=== PATIENT | male | born 1960 | race Caucasian/White ===

== ENCOUNTER 2022-06-15 16:57 | Emergency (ER) | payer OTHER ==
[~2022-06-15] VITALS: Ht 172.7 cm; Wt 90.7 kg
[~2022-06-15 16:57] MED LIST: BASAGLAR K100 UNIT/1 SC; GABA300 PO; Guaifenesin Wit10 ML PO; METF500 PO; VENL75ER PO; WARF10 PO; WARF7.5 PO
== END 2022-06-15 18:18 | disposition home or self-care (01) ==
LOC: ER 16:57
DX: S90.01XA Contusion of right ankle, initial encounter (principal); F17.200 Nicotine dependence, unspecified, uncomplicated; W22.8XXA Striking against or struck by other objects, initial encounter; Z86.711 Personal history of pulmonary embolism; Z79.01 Long term (current) use of anticoagulants; Z79.899 Other long term (current) drug therapy
CPT/HCPCS: 99283

== ENCOUNTER 2023-04-12 23:12 | Inpatient (IN) | payer OTHER ==
[~2023-04-12] VITALS: Ht 175.3 cm; Wt 90.2 kg
[~2023-04-12 23:12] MED LIST changes: -BASAGLAR K100 UNIT/1 SC; +INSULANI SC
[2023-04-13] VITALS (8 sets, daily range): BP systolic 109–147; BP diastolic 58–90
[2023-04-13 01:32] LABS: International Normalized Ratio 2.72
[2023-04-13] MEDS ORDERED: ATOR20 PO (04:34)
[2023-04-13] MEDS ORDERED: SERT25 (04:35)
[2023-04-13] MEDS ORDERED: ESOM20 (04:38)
[2023-04-13] MEDS ORDERED: PRAZ1 PO (04:45)
[2023-04-13 05:21] LABS: BASOPHILS ABSOLUTE AUTO 0.02 K/mm3 (0.00-0.23); BASOPHILS PERCENT AUTO 0 % (0-2); EOSINOPHILS ABSOLUTE AUTO 0.06 K/mm3 (0.00-0.68); EOSINOPHILS PERCENT AUTO 1 % (0-6); Hematocrit 43.4 % (37.0-53.0); IMMATURE GRAN PERCENT AUTO 0 % (0-1); LYMPHOCYTES ABSOLUTE AUTO 2.14 K/mm3 (0.84-5.20); LYMPHOCYTES PERCENT AUTO 38 % (21-46); MONOCYTES ABSOLUTE AUTO 0.43 K/mm3 (0.16-1.47); MONOCYTES PERCENT AUTO 8 % (4-13); Mean Corpuscular HGB 29.5 pg (26.0-34.0); Mean Corpuscular HGB Conc 34.6 g/dL (31.5-36.5); Mean Corpuscular Volume 85 fL (80-100); Mean Platelet Volume 10.7 fL (9.1-12.4); NEUTROPHILS ABSOLUTE AUTO 2.92 K/mm3 (1.96-9.15); NEUTROPHILS PERCENT AUTO 52 % (41-73); Platelet Count 171 K/mm3 (150-400); RDW Coefficient Variation 12.3 % (11.7-14.2); RDW Standard Deviation 38.8 fL (35.1-46.3); Red Blood Cell Count 5.08 M/mm3 (4.30-5.90); White Blood Cell Count 5.57 K/mm3 (4.00-11.30)
--- NOTE | 2023-04-13 05:39 | NUR ---
ADMISSION PT AXO4. ON RA. VSS. DENYING CP/PRESSURE. ADMISSION COMPLETED TO BEST OF ABILITY, PT UNAWARE OF ALL MEDICATION DOSAGES. WILL ADDRESS ON DAY SHIFT WITH PATIENTS PHARMACY. PT UPDATED OF HOSPITAL POLICY/PROCEDURE. PT WAS WORRIED ABOUT STARTING HEPARIN GTT VS CONTINUING COUMADIN CONSIDERING PATIENTS FACTOR V, FEARS ALLEVIATED, AWAITING HEPARIN GTT ORDERS. BED IN LOW POSITION. PT INDEPENDENT IN ROOM.
[2023-04-13 05:44] LABS: CHOL/HDL RATIO 2.7; Cholesterol 131 mg/dL (50-200); HDL Cholesterol 49 mg/dL (>39); LDL/HDL RATIO 1.2; Low Density Lipoprotein Chol 61 mg/dL (0-110); Triglycerides 104 mg/dL (30-160); Very Low Density Lipoprot Chol 20 mg/dL (6-32)
[2023-04-13 05:47] LABS: Albumin, Blood 3.7 g/dL (3.4-5.0); Albumin/Globulin Ratio 1.3 (0.8-1.8); Bilirubin, Total 0.6 mg/dL (0.1-1.0); Calcium, Blood 8.7 mg/dL (8.5-10.1); Creatinine, Blood 0.78 mg/dL (0.60-1.20); Globulin, Blood 2.9 g/dL (2.2-4.0); Potassium, Blood 3.6 mmol/L (3.5-5.5); Total Protein, Blood 6.6 g/dL (6.4-8.2)
[2023-04-13 07:01] LABS: Free Thyroxine 0.99 ng/dL (0.70-1.60); Triiodothyronine, Free 3.31 pg/mL (2.18-3.98)
--- NOTE | 2023-04-13 17:35 | NUR ---
END OF SHIFT PT A&O X4. INDEPENDENT IN RM. VSS. SPO2 > 92% ON RA. MONITOR SHOWING SB-SR, HR 40s-60s. PT REPORTING NORMAL FOR HIM TO HAVE LOW HR, REPORTING HISTORY OF BEING A RUNNER. PT REPORTING "DULL" CP IN MID CHEST. ECHO DONE AT BEDSIDE THIS AM. 1ST PART OF STRESS TEST COMPLETE. PT W/ PLAN TO BE NPO EXCEPT FOR WATER AFTER MIDNIGHT FOR 2ND PORTION OF TEST IN AM.
--- NOTE | 2023-04-13 23:49 | NUR ---
CARE NOTE AT APPROX. 2330, THIS NURSE ANSWERED CALL LIGHT. PT WAS REPORTING 7/10 CHEST PAIN THAT RADIATED TO ESOPHAGUS AND ABD. BP STABLE, 1 DOSE NITRO GIVEN. PT REPORTED CP DECREASED TO 5/10. WILL CONTINUE TO MINTOR.
[2023-04-14 03:30] VITALS: BP 123/72
[2023-04-14 04:28] LABS: Bun/Creatinine Ratio 17.6 (12.0-20.0); Calcium, Blood 9.3 mg/dL (8.5-10.1); Creatinine, Blood 1.02 mg/dL (0.60-1.20); International Normalized Ratio 1.73; Potassium, Blood 3.9 mmol/L (3.5-5.5); Prothrombin Time Results 17.6 Sec (9.7-11.5)
--- NOTE | 2023-04-14 07:24 | NUR ---
SHIFT SUMMARY PT ALERT AND ORIENTED X 4, VSS. CP REPORTED AT APPROX. 2330 7/10, NITRO GIVEN PER EMAR ORDERS AND PAIN REDUCED TO 6/10. AT 2348 PAIN INCREASED AGAIN THEREFOR NITRO GIVEN AND DR. PEREZ NOTIFIED. EKG ORDERED AND IS IN PT CHART, NO CHANGES NOTED TO EKG. PLEASE SEE LAB VALUES FOR TROPONIN TREND. AFTER 2ND NITRO WAS GIVEN PT REPORTED CP WAS DECREASING AND UPON LATER ASSESSMENT, PT APPEARED TO BE SLEEPING COMFORTABLY. HE HAS BEEN NPO SINCE MIDNIGHT FOR 2ND PORTION OF STRESS TEST. HE IS INDEPENDENT IN ROOM. REPORT GIVEN TO DEVAGUHN ALEGRIA.
[2023-04-14 07:48] VITALS: BP 111/73
[2023-04-14 11:20] VITALS: BP 108/63
[2023-04-14] MEDS ORDERED: PANT40 PO (15:06)
[2023-04-14 15:39] VITALS: BP 117/78
--- NOTE | 2023-04-14 16:02 | NUR ---
DISCHARGE SUMMARY ALERT, ORIENTED, INDEPENDENT. COMPLETED REST PORTION OF STRESS TEST THIS AM. RESULTS CAME BACK NEGATIVE PER DR LANG. TOLERATING CARDIAC/ADA DIET AND LIQUIDS. VOIDING WELL. DENIES CP, SOB. VSS. CHEM BGS COVERED PER SS ON EMAR. NSR ON TELE 60S TO 80S. DISCHARGE ORDER PLACED BY DR LANG. DISCHARGE EDUCATION GIVEN ON NEW RX, FOLLOW UP [facility]DAY [facility], AND FOLLOWY WITH PCP AND CARDIOLOGY. IV DC'D WNL. PATIENT LEFT UNIT AT 1600 VIA WHEELCHAIR WITH SPOUSE FOR HOME.
== END 2023-04-14 16:00 | disposition home or self-care (01) | DRG 948 ==
LOC: ER 23:12 → PCU 23:13
PROVIDERS: Emergency Medicine; Family Medicine; Family Medicine Adult Medicine; ADMIT Internal Medicine
PROC: 5A09357 Assistance with Respiratory Ventilation, Less than 24 Consecutive Hours, Continuous Positive Airway Pressure (ICD-10-PCS; principal; 2023-04-13)
DX: E07.81 Sick-euthyroid syndrome (principal); D68.51 Activated protein C resistance; I25.10 Atherosclerotic heart disease of native coronary artery without angina pectoris; E11.9 Type 2 diabetes mellitus without complications; R07.89 Other chest pain; R00.2 Palpitations; I10 Essential (primary) hypertension; F32.A Depression, unspecified; G47.33 Obstructive sleep apnea (adult) (pediatric); R94.6 Abnormal results of thyroid function studies; Q07.00 Arnold-Chiari syndrome without spina bifida or hydrocephalus; I25.2 Old myocardial infarction; Z86.73 Personal history of transient ischemic attack (TIA), and cerebral infarction without residual deficits; Z86.711 Personal history of pulmonary embolism; Z86.718 Personal history of other venous thrombosis and embolism; Z87.19 Personal history of other diseases of the digestive system; Z90.49 Acquired absence of other specified parts of digestive tract; Z79.4 Long term (current) use of insulin; Z79.899 Other long term (current) drug therapy; Z79.01 Long term (current) use of anticoagulants
CPT/HCPCS: 36415; 36416; 78452; 80048; 80053; 80061; 82947; 83036; 83690; 84439; 84443; 84481; 84484; 85025; 85520; 85610; 93005; 93010; 93017; 93306; 94760; 99285-25; A9270; A9500; G0378; J0280; J1815; J2785

== ENCOUNTER 2023-10-30 17:08 | Emergency (ER) | payer OTHER ==
[~2023-10-30] VITALS: Ht 172.7 cm; Wt 90.7 kg
[~2023-10-30 17:08] MED LIST changes: +ATOR20 PO; +ESOM20; +PANT40 PO; +PRAZ1 PO; +SERT25
[2023-10-30 17:16] VITALS: BP 123/90
== END 2023-10-30 18:32 | disposition home or self-care (01) ==
LOC: ER 17:08
DX: S61.112A Laceration without foreign body of left thumb with damage to nail, initial encounter (principal); E11.9 Type 2 diabetes mellitus without complications; F17.200 Nicotine dependence, unspecified, uncomplicated; W27.0XXA Contact with workbench tool, initial encounter; Z79.4 Long term (current) use of insulin; Z79.899 Other long term (current) drug therapy; Z79.01 Long term (current) use of anticoagulants
CPT/HCPCS: 73140; 90471; 90714; 90715; 99283-25